=== PATIENT | male | born 1980 | race Caucasian/White ===

== ENCOUNTER 2018-02-02 08:56 | Emergency (ER) | payer SELFPAY | END 2018-02-02 10:44 | disposition home or self-care (01) | LOC: ER 10:44 | DX: S39.012A Strain of muscle, fascia and tendon of lower back, initial encounter (principal); M54.12 Radiculopathy, cervical region; X50.1XXA Overexertion from prolonged static or awkward postures, initial encounter; Y93.89 Activity, other specified; Y92.89 Other specified places as the place of occurrence of the external cause; Y99.8 Other external cause status | CPT/HCPCS: 99283 ==